=== PATIENT | female | born 1965 | race Caucasian/White ===

== ENCOUNTER 2019-06-06 16:33 | Emergency (ER) | payer BC ==
[~2019-06-06] VITALS: Ht 154.9 cm; Wt 59.0 kg
[2019-06-06] MEDS ORDERED: COZAAR 25 MG TA25 MG PO (16:43)
[2019-06-06] MEDS ORDERED: ESTRACE0.5 MG PO (16:43)
[2019-06-06] MEDS ORDERED: LIPITOR10 MG PO (16:43)
[2019-06-06] MEDS ORDERED: PROVERA2.5 MG PO (16:44)
[2019-06-06] MEDS ORDERED: DOXYCYCLINE 10100 MG PO (17:43)
[2019-06-06 17:48] VITALS: BP 138/70
== END 2019-06-06 17:49 | disposition home or self-care (01) ==
LOC: M.ERS 16:33
DX: S01.01XA Laceration without foreign body of scalp, initial encounter (principal); Z88.0 Allergy status to penicillin; Z98.51 Tubal ligation status; Z90.89 Acquired absence of other organs; W22.8XXA Striking against or struck by other objects, initial encounter; Y93.89 Activity, other specified; Y92.89 Other specified places as the place of occurrence of the external cause; Y99.8 Other external cause status